=== PATIENT | male | born 1995 | race African-American/Black ===

== ENCOUNTER 2022-03-10 16:54 | Emergency (ER) | payer MEDICAID ==
[~2022-03-10] VITALS: Ht 198.1 cm; Wt 99.8 kg
[2022-03-10 17:00] VITALS: BP 147/99
--- NOTE | 2022-03-10 18:06 | NUR ---
URINE COLLECTED AND SENT TO LAB
[2022-03-10 18:42] LABS: BILIRUBIN,URINE NEGATIVE (NEGATIVE); COLOR,URINE YELLOW (YELLOW); LEUKOCYTE ESTERASE ,URINE LARGE (NEGATIVE); NITRITE, URINE NEGATIVE (NEGATIVE); PH,URINE 8.5 (5.0-8.0); PROTEIN,URINE NEGATIVE (NEGATIVE); UGLUCOSE NEGATIVE (NEGATIVE); UROBILINOGEN,URINE 0.2 EU/dL (0.2)
[2022-03-10 18:57] LABS: BACTERIA,URINE 2+ /HPF (None Seen); SQUAMOUS EPITHELIAL CELL,UR 0-2 /HPF (None Seen); WBC,URINE 81-100 /HPF (0-3)
[2022-03-10] MEDS ORDERED: CEFTRIAXONE 500 MG VIAL IM ONE (19:00)
[2022-03-10] MEDS ORDERED: DOXY100C2 PO ×2 (19:11→20:45)
[2022-03-10] MEDS ORDERED: CEFTRIAXONE 500 MG VIAL ONE (19:20)
== END 2022-03-10 19:38 | disposition home or self-care (01) ==
LOC: ER 16:57
DX: N34.2 Other urethritis (principal); R36.9 Urethral discharge, unspecified; R30.0 Dysuria; Z60.2 Problems related to living alone
CPT/HCPCS: 99283; 96372; 87086; 81001; 87491; 87591; J0696